=== PATIENT | male | born 1995 | race Caucasian/White ===

== ENCOUNTER → 2017-07-12 | Outpatient (CLI) | payer OTHER ==
--- NOTE | 2017-07-12 10:23 | REP ---
Facial bone series: History: Facial contusion. Findings: Bony orbital margins are intact. No paranasal sinus fracture is seen. The paranasal sinuses are clear. No nasal or inferior maxillary spine fracture is seen. No mandibular fracture noted. Zygomatic arches appear to be intact on the Mcdonnell view. No significant change when compared with the prior study of April 13, 2016. Impression: No facial fracture seen.
== END ==
LOC: M CLY 09:01
PROVIDERS: ATTEND Family Medicine
DX: S00.83XA Contusion of other part of head, initial encounter (principal); X58.XXXA Exposure to other specified factors, initial encounter; Y92.89 Other specified places as the place of occurrence of the external cause; Y93.89 Activity, other specified; Y99.8 Other external cause status

== ENCOUNTER → 2021-09-05 | Outpatient (REF) | payer OTHER, MEDICAID | LOC: M SFHCCLAY 15:50 | PROVIDERS: ATTEND Family Medicine | DX: N39.498 Other specified urinary incontinence (principal) ==